=== PATIENT | female | born 1960 | race Caucasian/White ===

== ENCOUNTER 2018-02-11 09:58 | Outpatient (CLI) | payer BC ==
--- NOTE | 2018-02-11 13:58 | MRI ---
MRI LEFT ANKLE WITHOUT CONTRAST: Date: 02/11/18 HISTORY: Tendon tear. Rolled ankle. COMPARISON: None. FINDINGS: Ligaments: The AITFL and PITFL are intact. The ATFL is intact, as well as the CFL. The superficial and deep deltoid ligaments are intact. Spring ligament is intact. Tendons: There is moderate tenosynovial fluid in the peroneal tendon sheath above the level of the lateral mal leolus. No subluxation. No longitudinal split tear. The fibers of the lateral malleolus are intact. There is mild flattening of the posterior margin of t he lateral malleolus. Mild tenosynovial fluid in the posterior tibial tendon sheath. There is a moderate size ankle joint e ffusion. Bones: There is a fracture, impaction type, of the cuboid, as well as of the base of the fifth metatarsal. T his is at the level of the region of interest marker. There is a moderate size plantar calcaneal spur . Muscles: The medial region of interest marker is injury of the abductor hallucis muscle, which is partially to rn. The overlying fracture is also partially torn. IMPRESSION: 1. Impaction-type fractures of the cuboid, as well as base of fifth metatarsal. There is also some t race edema within the lateral cuneiform, also likely an impaction injury. 2. Partial tear of the adductor hallucis muscle origin with overlying fascial partial tear. 3. Moderate ankle joint effusion, as well as a ganglion pseudocyst of the anterior capsule, which mi ght have been from partial tear. 4. Moderate peroneal tenosynovitis. POS: [facility]
== END 2018-02-11 09:59 | disposition home or self-care (01) ==
LOC: TBSIIMAG 09:58
PROVIDERS: ATTEND Podiatrist Foot & Ankle Surgery
DX: S86.312A Strain of muscle(s) and tendon(s) of peroneal muscle group at lower leg level, left leg, initial encounter (principal); S92.212A Displaced fracture of cuboid bone of left foot, initial encounter for closed fracture; S92.352A Displaced fracture of fifth metatarsal bone, left foot, initial encounter for closed fracture; S96.212A Strain of intrinsic muscle and tendon at ankle and foot level, left foot, initial encounter; M25.472 Effusion, left ankle; M67.472 Ganglion, left ankle and foot; M65.872 Other synovitis and tenosynovitis, left ankle and foot